=== PATIENT | female | born 1960 | race Two or more races ===

== ENCOUNTER → 2024-11-09 | Outpatient (CLI) | payer MEDICARE, BC, SELFPAY ==
[2024-11-09 10:43] LABS: OBS QC OK? Yes
[2024-11-09 11:36] LABS: Occult Blood, Stool Negative (Negative); Occult Blood, Stool #2 Negative (Negative); Occult Blood, Stool #3 Negative (Negative)
[2024-11-09 11:37] LABS: OBS Developer Lot # 1-24-551749; OBS Performed By DS
== END | disposition home or self-care (01) ==
LOC: SLDO 10:19
PROVIDERS: PCP Registered Nurse General Practice; Referring Provider Registered Nurse General Practice; Visit Provider Registered Nurse General Practice
DX: R10.9 Unspecified abdominal pain (principal)
CPT/HCPCS: 82270

== ENCOUNTER → 2024-12-01 | Outpatient (CLI) | payer MEDICARE, BC, SELFPAY ==
[2024-12-08 15:34] LABS: EBV EBNA Ab (IgG) >600.00 U/mL; EBV VCA Ab (IgG) >750.00 U/mL; EBV VCA Ab (IgM) <36.00 U/mL
[2024-12-09 06:58] LABS: CMV Antibody (IgM) <30.00 AU/mL; EBV Ab Interpretation PAST; Parvovirus B19 Ab IgG 4.4; Parvovirus B19 Ab IgM 0.9
== END | disposition home or self-care (01) ==
LOC: COPL 12:08
PROVIDERS: PCP Registered Nurse General Practice; Referring Provider Registered Nurse General Practice; Visit Provider Registered Nurse General Practice
DX: B25.9 Cytomegaloviral disease, unspecified (principal); B27.00 Gammaherpesviral mononucleosis without complication
CPT/HCPCS: 36415; 86644; 86645; 86664; 86665; 86747

== ENCOUNTER 2024-12-26 12:20 | Day surgery (SDC) | payer MEDICARE, BC, SELFPAY ==
[2024-12-26] VITALS (8 sets, daily range): BP systolic 140–174; BP diastolic 77–94; PULSE 53–71; RESP 14–22; TEMP 36.8–37; O2SAT 96–100; BMI 25.2
[2024-12-26] MEDS: MIDAZOLAM INJ 1 MG/ML VIAL 2 ML (ASD USE ONLY) 2 MG IVP (14:08)
[2024-12-26] MEDS: SODIUM CHLORIDE 0.9% 500 ML 500 ML 20 ML IV (14:08)
[2024-12-26] MEDS: fentaNYL CIT INJ 50 mCg/ML AMP 2ML (ASD USE ONLY) IVP (14:09)
[2024-12-26] MEDS: DiphenhydrAMINE INJ 50 MG/ML VIAL 25 MG IVP (14:15)
== END 2024-12-26 14:45 | disposition home or self-care (01) ==
PROVIDERS: PCP Registered Nurse General Practice; Referring Provider Specialist; Visit Provider Specialist
PROC: (CPT 43239; principal; 2024-12-26 12:15)
DX: K22.2 Esophageal obstruction (principal); K20.90 Esophagitis, unspecified without bleeding; K29.70 Gastritis, unspecified, without bleeding; K29.50 Unspecified chronic gastritis without bleeding; K31.89 Other diseases of stomach and duodenum
CPT/HCPCS: 43248; 43239; C1769; J1200; J2250; J3010; J7999